=== PATIENT | male | born 2000 | race Caucasian/White ===

== ENCOUNTER 2024-10-01 08:35 | Emergency (ER) | payer MEDICAID ==
[~2024-10-01] VITALS: Ht 176.5 cm; Wt 61.6 kg
[2024-10-01] MEDS ORDERED: ONDA-243 PO (09:56)
[2024-10-01] MEDS: normal saline 1000ML IV soln IVB ONE (10:22)
[2024-10-01 12:04] VITALS: BP 97/56; PULSE 84; RESP 14; O2SAT 98
[2024-10-01 12:36] VITALS: TEMP 98.1
== END 2024-10-01 12:38 | disposition home or self-care (01) ==
LOC: ER 08:36
DX: B34.9 Viral infection, unspecified (principal); E86.0 Dehydration
CPT/HCPCS: 96360; 99283; J7030